=== PATIENT | male | born 1950 | race African-American/Black ===

== ENCOUNTER 2018-02-20 13:47 | Inpatient (IN) ==
[2018-02-20] MEDS ORDERED: LEVOFLOXACIN INJ 750 MG in PREMIX 1 EACH IV STA (15:40)
[2018-02-20] MEDS ORDERED: SODIUM CHLORIDE 0.9% 1,000 ML IV STA (15:43)
[2018-02-20] MEDS ORDERED: LEVOFLOXACIN INJ 150 ML IV ONE (16:13)
[2018-02-20] MEDS ORDERED: MORPHINE 4 MG/1 ML VIAL IV STA (16:56)
[2018-02-20] MEDS ORDERED: MORPHINE 4 MG/1 ML VIAL ONE (17:04)
[2018-02-20] MEDS ORDERED: GLUCAGON 1 MG VIAL IM PRN (18:15)
[2018-02-20] MEDS ORDERED: ACETAMINOPHEN 325 MG TABLET PO PRN (18:15)
[2018-02-20] MEDS ORDERED: guaiFENesin/DM ER 600-30 MG TABLET PO PRN (18:15)
[2018-02-20] MEDS ORDERED: DOCUSATE SODIUM 100 MG CAPSULE PO PRN (18:15)
[2018-02-20] MEDS ORDERED: DEXTROSE 50% 25 GM/50 ML VIAL IV PRN (18:15)
[2018-02-20] MEDS ORDERED: ONDANSETRON 4 MG/2 ML VIAL IV PRN (18:15)
[2018-02-20] MEDS: ALBUTEROL/IPRATROPIUM 3 ML NEB RESP TX SCH (19:10)
[2018-02-20] MEDS: ENOXAPARIN 40 MG/0.4 ML SYRINGE SUBCUT SCH (22:01)
[2018-02-20] MEDS: INSULIN LISPRO 100 UNIT/ML SUBCUT SCH (22:01)
[2018-02-20] MEDS: BENZONATATE 100 MG CAPSULE PO SCH (22:02)
[2018-02-20] MEDS: SODIUM CHLORIDE 0.9% 1,000 ML IV SCH (22:14)
[2018-02-21] MEDS: ALBUTEROL/IPRATROPIUM 3 ML NEB RESP TX SCH ×4 (01:56→19:14)
[2018-02-21 04:55] LABS: Basophils % 0.1 % (0.0-0.8); Eosinophils % 0.1 % (0.00-10.9); Hematocrit 27.6 VOL% (42.0-52.0); Hemoglobin 8.9 GM/DL (14.0-18.0); Immature Granulocytes % 0.7 %; Immature Granulocytes Absolute 0.07 #; Lymphocytes # 0.8 10*3/uL (1.4-4.0); Lymphocytes % 8.2 % (21.2-54.2); Mean Corpuscular HGB Conc 32.2 GM/DL (32-36); Mean Corpuscular Hemoglobin 25 PG (27-34); Mean Corpuscular Volume 77.7 FL (87-102); Mean Platelet Volume 12.6 FL (9.6-12.0); Monocytes % 9.6 % (1.7-12.7); Neutrophils # 8.3 10*3/uL (1.4-7.4); Neutrophils % 81.3 % (38.7-73.9); Platelet Count 185 T/CUMM (130-400); Red Blood Count 3.55 MC/CUMM (3.8-5.5); White Blood Count 10.2 T/CUMM (4-12)
[2018-02-21] MEDS: SODIUM CHLORIDE 0.9% 1,000 ML IV SCH ×2 (05:00→11:24)
[2018-02-21 05:23] LABS: Albumin 2.2 G/DL (3.4-5.0); Bilirubin,Total 0.7 MG/DL (0.2-1.0); Calcium 7.6 MG/DL (8.5-10.1); Osmolality,Calculated 278.7 MOS/KG (273-304); Potassium 3.6 MMOL/L (3.5-5.1); Total Protein 8.1 G/DL (6.4-8.3)
[2018-02-21] MEDS ORDERED: ONDANSETRON 4 MG TABLET PO PRN (08:01)
[2018-02-21] MEDS ORDERED: PANTOPRAZOLE 40 MG TABLET PO SCH (09:00)
[2018-02-21] MEDS ORDERED: hydroCHLOROthiazide 25 MG TABLET PO SCH (09:00)
[2018-02-21] MEDS: MEGESTROL 400 MG/10 ML UDCUP PO SCH (09:14)
[2018-02-21] MEDS: PANTOPRAZOLE 40 MG TABLET PO SCH (09:15)
[2018-02-21] MEDS: OMEGA 3 ACID ETHYL ESTERS 1 GM CAPSULE PO SCH (09:15)
[2018-02-21] MEDS: BENZONATATE 100 MG CAPSULE PO SCH ×3 (09:15→21:37)
[2018-02-21] MEDS: CARVEDILOL 25 MG TABLET PO SCH ×2 (09:15→21:43)
[2018-02-21] MEDS: LOVASTATIN 20 MG TABLET PO SCH (09:15)
[2018-02-21] MEDS: PREGABALIN 75 MG CAPSULE PO SCH ×2 (09:15→21:37)
[2018-02-21] MEDS: INSULIN LISPRO 100 UNIT/ML SUBCUT SCH ×4 (09:15→21:43)
[2018-02-21] MEDS: glyBURIDE 5 MG TABLET PO SCH ×2 (09:16→21:36)
[2018-02-21] MEDS: LOSARTAN/HCTZ 50-12.5 MG TABLET PO SCH (09:16)
[2018-02-21] MEDS: ASPIRIN EC 81 MG TABLET PO SCH (09:16)
[2018-02-21] MEDS: LEVOFLOXACIN INJ 750 MG in PREMIX 1 EACH IV SCH (17:22)
[2018-02-21] MEDS: metFORMIN 500 MG TABLET PO SCH (17:22)
[2018-02-21 19:24] LABS: Apearance,Urine CLOUDY (Clear); Bilirubin,Urine Negative (Negative); Blood, Urine Large mg/dL (Negative); Glucose,Urine (UA) >=500 mg/dL (Negative); Ketones,Urine 20 mg/dL (Negative); Mucus,Urine Occasional /LPF (Occasional); Nitrite,Urine Negative (Negative); Protein,Urine 100 MG/DL; RBC,Urine 2205 /HPF (0-4); Urine Color Amber (Yellow); Urine Specific Gravity 1.018 (1.001-1.035); WBC,Urine 101 /HPF (0-6)
[2018-02-21] MEDS: ENOXAPARIN 40 MG/0.4 ML SYRINGE SUBCUT SCH (21:37)
[2018-02-21] MEDS: INSULIN GLARGINE 100 UNIT/ML SUBCUT SCH (21:43)
[2018-02-22] MEDS: ALBUTEROL/IPRATROPIUM 3 ML NEB RESP TX SCH ×4 (01:10→20:34)
[2018-02-22] MEDS: SODIUM CHLORIDE 0.9% 1,000 ML IV SCH ×5 (03:04→20:55)
[2018-02-22 05:48] LABS: Basophils % 0.1 % (0.0-0.8); Eosinophils # 0.1 10*3/uL (0.0-0.87); Eosinophils % 0.5 % (0.00-10.9); Hematocrit 26.6 VOL% (42.0-52.0); Hemoglobin 8.4 GM/DL (14.0-18.0); Immature Granulocytes % 0.6 %; Immature Granulocytes Absolute 0.06 #; Lymphocytes # 0.8 10*3/uL (1.4-4.0); Lymphocytes % 7.7 % (21.2-54.2); Mean Corpuscular HGB Conc 31.6 GM/DL (32-36); Mean Corpuscular Hemoglobin 25 PG (27-34); Mean Corpuscular Volume 78.9 FL (87-102); Monocytes # 1.1 10*3/uL (0.11-0.8); Monocytes % 10.5 % (1.7-12.7); Neutrophils # 8.7 10*3/uL (1.4-7.4); Neutrophils % 80.6 % (38.7-73.9); Platelet Count 165 T/CUMM (130-400); Red Blood Count 3.37 MC/CUMM (3.8-5.5); Red Cell Distribution Width 23.3 % (9.3-17.3); White Blood Count 10.8 T/CUMM (4-12)
[2018-02-22 06:10] LABS: Hypochromasia 1+; Microcytosis 1+; Ovalocytes Slight; Platelet Estimate Adequate; Target Cells Slight
[2018-02-22 06:14] LABS: Calcium 7.1 MG/DL (8.5-10.1); Osmolality,Calculated 272.8 MOS/KG (273-304); Potassium 3.5 MMOL/L (3.5-5.1)
[2018-02-22] MEDS: LEVOTHYROXINE 200 MCG TABLET PO SCH (07:00)
[2018-02-22] MEDS: LOSARTAN/HCTZ 50-12.5 MG TABLET PO SCH (09:23)
[2018-02-22] MEDS: metFORMIN 500 MG TABLET PO SCH ×2 (09:23→17:01)
[2018-02-22] MEDS: PANTOPRAZOLE 40 MG TABLET PO SCH (09:23)
[2018-02-22] MEDS: MEGESTROL 400 MG/10 ML UDCUP PO SCH (09:23)
[2018-02-22] MEDS: ASPIRIN EC 81 MG TABLET PO SCH (09:24)
[2018-02-22] MEDS: OMEGA 3 ACID ETHYL ESTERS 1 GM CAPSULE PO SCH (09:24)
[2018-02-22] MEDS: CARVEDILOL 25 MG TABLET PO SCH ×2 (09:24→21:01)
[2018-02-22] MEDS: glyBURIDE 5 MG TABLET PO SCH ×2 (09:24→21:01)
[2018-02-22] MEDS: LOVASTATIN 20 MG TABLET PO SCH (09:24)
[2018-02-22] MEDS: PREGABALIN 75 MG CAPSULE PO SCH ×2 (09:25→21:01)
[2018-02-22] MEDS: INSULIN LISPRO 100 UNIT/ML SUBCUT SCH ×4 (10:17→21:02)
[2018-02-22] MEDS: BENZONATATE 100 MG CAPSULE PO SCH ×3 (12:18→21:01)
[2018-02-22] MEDS: LEVOFLOXACIN INJ 750 MG in PREMIX 1 EACH IV SCH (15:56)
[2018-02-22 19:11] LABS: Apearance,Urine CLEAR (Clear); Bilirubin,Urine Negative (Negative); Blood, Urine Large mg/dL (Negative); Glucose,Urine (UA) Negative (Negative); Ketones,Urine 20 mg/dL (Negative); Mucus,Urine Occasional /LPF (Occasional); Nitrite,Urine Negative (Negative); Protein,Urine 30 MG/DL; RBC,Urine 1 /HPF (0-4); Renal Epithelial Cells,Urine Occasional /HPF (<1); Squamous Epithelial Cell,Urine Occasional /HPF (0-10); Urine Color Yellow (Yellow); Urine Specific Gravity 1.016 (1.001-1.035); WBC,Urine 10 /HPF (0-6)
[2018-02-22] MEDS: ENOXAPARIN 40 MG/0.4 ML SYRINGE SUBCUT SCH (21:01)
[2018-02-22] MEDS: INSULIN GLARGINE 100 UNIT/ML SUBCUT SCH (21:02)
[2018-02-23] MEDS: ALBUTEROL/IPRATROPIUM 3 ML NEB RESP TX SCH ×4 (00:51→19:10)
[2018-02-23] MEDS: LEVOTHYROXINE 200 MCG TABLET PO SCH (06:00)
[2018-02-23] MEDS: MEGESTROL 400 MG/10 ML UDCUP PO SCH (09:01)
[2018-02-23] MEDS: BENZONATATE 100 MG CAPSULE PO SCH ×3 (09:01→20:39)
[2018-02-23] MEDS: metFORMIN 500 MG TABLET PO SCH ×2 (09:01→17:35)
[2018-02-23] MEDS: PREGABALIN 75 MG CAPSULE PO SCH ×2 (09:02→20:39)
[2018-02-23] MEDS: CARVEDILOL 25 MG TABLET PO SCH ×2 (09:02→20:39)
[2018-02-23] MEDS: ASPIRIN EC 81 MG TABLET PO SCH (09:03)
[2018-02-23] MEDS: LOSARTAN/HCTZ 50-12.5 MG TABLET PO SCH (09:03)
[2018-02-23] MEDS: PANTOPRAZOLE 40 MG TABLET PO SCH (09:03)
[2018-02-23] MEDS: LOVASTATIN 20 MG TABLET PO SCH (09:05)
[2018-02-23] MEDS: OMEGA 3 ACID ETHYL ESTERS 1 GM CAPSULE PO SCH (09:05)
[2018-02-23] MEDS: INSULIN LISPRO 100 UNIT/ML SUBCUT SCH ×4 (09:34→20:37)
[2018-02-23] MEDS: glyBURIDE 5 MG TABLET PO SCH ×2 (09:36→20:37)
[2018-02-23] MEDS: SODIUM CHLORIDE 0.9% 1,000 ML IV SCH ×2 (12:13→12:15)
[2018-02-23] MEDS: POLYETHYLENE GLYCOL POWDER 17 GM PACK PO SCH ×2 (12:14→20:39)
[2018-02-23] MEDS: LEVOFLOXACIN INJ 750 MG in PREMIX 1 EACH IV SCH (17:06)
[2018-02-23] MEDS: INSULIN GLARGINE 100 UNIT/ML SUBCUT SCH (20:38)
[2018-02-23] MEDS: ENOXAPARIN 40 MG/0.4 ML SYRINGE SUBCUT SCH (20:43)
[2018-02-24] MEDS: ALBUTEROL/IPRATROPIUM 3 ML NEB RESP TX SCH ×3 (00:14→13:52)
[2018-02-24 04:53] LABS: Basophils % 0.3 % (0.0-0.8); Eosinophils # 0.1 10*3/uL (0.0-0.87); Eosinophils % 0.9 % (0.00-10.9); Hematocrit 26.8 VOL% (42.0-52.0); Hemoglobin 8.4 GM/DL (14.0-18.0); Immature Granulocytes % 0.5 %; Immature Granulocytes Absolute 0.04 #; Lymphocytes # 0.9 10*3/uL (1.4-4.0); Lymphocytes % 11.1 % (21.2-54.2); Mean Corpuscular HGB Conc 31.3 GM/DL (32-36); Mean Corpuscular Hemoglobin 26 PG (27-34); Mean Corpuscular Volume 81.2 FL (87-102); Mean Platelet Volume 12.7 FL (9.6-12.0); Monocytes # 0.8 10*3/uL (0.11-0.8); Monocytes % 10.7 % (1.7-12.7); Neutrophils # 5.9 10*3/uL (1.4-7.4); Neutrophils % 76.5 % (38.7-73.9); Platelet Count 190 T/CUMM (130-400); Red Cell Distribution Width 23.6 % (9.3-17.3); White Blood Count 7.7 T/CUMM (4-12)
[2018-02-24] MEDS: SODIUM CHLORIDE 0.9% 1,000 ML IV SCH ×2 (05:10→10:36)
[2018-02-24 05:20] LABS: Osmolality,Calculated 275.3 MOS/KG (273-304); Potassium 3.5 MMOL/L (3.5-5.1)
[2018-02-24 05:37] LABS: Platelet Estimate Normal; Polychromasia Slight
[2018-02-24] MEDS: LEVOTHYROXINE 200 MCG TABLET PO SCH (06:24)
[2018-02-24] MEDS: INSULIN LISPRO 100 UNIT/ML SUBCUT SCH ×2 (08:43→11:44)
[2018-02-24] MEDS: glyBURIDE 5 MG TABLET PO SCH (08:44)
[2018-02-24] MEDS: metFORMIN 500 MG TABLET PO SCH (08:44)
[2018-02-24] MEDS: MEGESTROL 400 MG/10 ML UDCUP PO SCH (09:31)
[2018-02-24] MEDS: PANTOPRAZOLE 40 MG TABLET PO SCH (09:31)
[2018-02-24] MEDS: CARVEDILOL 25 MG TABLET PO SCH (09:31)
[2018-02-24] MEDS: OMEGA 3 ACID ETHYL ESTERS 1 GM CAPSULE PO SCH (09:31)
[2018-02-24] MEDS: PREGABALIN 75 MG CAPSULE PO SCH (09:31)
[2018-02-24] MEDS: LOSARTAN/HCTZ 50-12.5 MG TABLET PO SCH (09:31)
[2018-02-24] MEDS: BENZONATATE 100 MG CAPSULE PO SCH (09:31)
[2018-02-24] MEDS: LOVASTATIN 20 MG TABLET PO SCH (09:31)
[2018-02-24] MEDS: POLYETHYLENE GLYCOL POWDER 17 GM PACK PO SCH (09:31)
[2018-02-24] MEDS: ASPIRIN EC 81 MG TABLET PO SCH (09:31)
[2018-02-24 11:28] VITALS: BP 109/59
[2018-02-24 14:27] LABS: Apearance,Urine CLEAR (Clear); Bacteria,Urine Occasional /HPF (Few); Bilirubin,Urine Negative (Negative); Blood, Urine Negative (Negative); Glucose,Urine (UA) Negative (Negative); Ketones,Urine 5 mg/dL (Negative); Mucus,Urine Occasional /LPF (Occasional); Nitrite,Urine Negative (Negative); Protein,Urine Negative; RBC,Urine 1 /HPF (0-4); Squamous Epithelial Cell,Urine Occasional /HPF (0-10); Urine Color Yellow (Yellow); Urine Specific Gravity 1.011 (1.001-1.035); WBC,Urine 2 /HPF (0-6)
== END 2018-02-24 15:41 | disposition home or self-care (01) | DRG 194 ==
LOC: N.ED 13:47 → N.EDINP 18:15 → N.TELES 19:44
PROVIDERS: ADMIT Internal Medicine Geriatric Medicine; ATTEND Internal Medicine Geriatric Medicine